=== PATIENT | male | born 1945 | race African-American/Black ===

== ENCOUNTER 2017-07-17 22:29 | Inpatient (IN) | payer MEDICARE, OTHER ==
[~2017-07-17] VITALS: Ht 175.3 cm; Wt 75.3 kg
[~2017-07-17 22:29] MED LIST: BACL-141 PO; DILT60TA3 PO; LABE100T PO; LISI-652 PO; SIMV10TA2 PO; TAMS-11 PO
[2017-07-17] MEDS ORDERED: SODIUM CHLORIDE 0.9% 1,000 ML IV ONE (23:27)
[2017-07-17] MEDS ORDERED: ONDANSETRON HCL 4MG/2ML VIAL IV ONE (23:30)
[2017-07-18 00:05] LABS: BASOPHILS % 0.3 % (0.0-2.0); EOSINOPHILS % 0.4 % (0.0-5.0); HEMATOCRIT. 29.7 % (42.0-52.0); HEMOGLOBIN. 9.8 g/dL (14.0-18.0); LYMPHOCYTES % 10.1 % (20.0-50.0); MEAN CORPUSCULAR HEMOGLOBIN 25.8 pg (28.0-32.0); MEAN CORPUSCULAR VOLUME 78.2 fL (80.0-94.0); MEAN PLATELET VOLUME 7.6 fl (7.4-10.4); MONOCYTES % 10.2 % (2.0-8.0); PLATELET 279 x1000/uL (130-400); RED CELL DISTRIBUTION WIDTH 19.3 % (11.6-14.6)
[2017-07-18 00:09] LABS: CHLORIDE 100 mEq/L (98-107)
[2017-07-18 00:11] LABS: INR 1.1; PROTHROMBIN TIME 11.6 sec (9.4-11.6)
[2017-07-18 00:17] LABS: CARBON DIOXIDE 31 mEq/L (21-32)
[2017-07-18 01:32] LABS: CLARITY URINE CLEAR (CLEAR); COLOR URINE YELLOW (YELLOW); GLUCOSE URINE NEGATIVE (NEGATIVE); KETONES URINE NEGATIVE (NEGATIVE); LEUKOCYTE ESTERASE URINE NEGATIVE (NEGATIVE); NITRITE URINE NEGATIVE (NEGATIVE); OCCULT BLOOD URINE TRACE (NEGATIVE); PH URINE 5.5 (4.5-8.0); PROTEIN URINE 2+ (NEGATIVE); SPECIFIC GRAVITY URINE 1.016 (1.005-1.030); UROBILINOGEN URINE 0.2 E.U./dL (0.2-1.0)
[2017-07-18] MEDS ORDERED: SODIUM CHLORIDE 0.9% 1,000 ML IV SCH (02:25)
[2017-07-18] MEDS ORDERED: ONDANSETRON HCL 4MG/2ML VIAL IV PRN (08:30)
[2017-07-18] MEDS ORDERED: LORAZEPAM 2MG/ML CPJ IV PRN (08:30)
[2017-07-18] MEDS ORDERED: MORPHINE SULFATE 2 MG/ML CPJ (NOT FOR IM USE) IV PRN (08:30)
[2017-07-18] MEDS ORDERED: HYDROCODONE/ACETAMINOPHEN 5/325MG TABLET PO PRN (08:30)
[2017-07-18] MEDS: POTASSIUM CHLORIDE 20MEQ/PACKET GT SCH ×2 (08:53→17:21)
[2017-07-18 09:43] VITALS: BP 138/76
[2017-07-18 09:47] VITALS: BP 138/76
[2017-07-18] MEDS ORDERED: LACTULOSE 20G/30ML UDC PO PRN (10:15)
[2017-07-18 11:32] LABS: *AMPHETAMINES SCREEN URINE NEGATIVE (NEGATIVE); *BARBITURATES SCREEN URINE NEGATIVE (NEGATIVE); *BENZODIAZEPINES SCREEN URINE NEGATIVE (NEGATIVE); *COCAINE SCREEN URINE NEGATIVE (NEGATIVE); CANNABINOID URINE SCREEN NEGATIVE (NEGATIVE); METHADONE URINE SCREEN NEGATIVE (NEGATIVE); OPIATES URINE SCREEN NEGATIVE (NEGATIVE); PHENCYCLIDINE URINE SCREEN NEGATIVE (NEGATIVE)
[2017-07-18] MEDS: DEXT 5%/0.45% NACL 1000ML 1,000 ML IV SCH (11:51)
[2017-07-18] MEDS: ENOXAPARIN 40MG/0.4ML SYR SUBCUT SCH (11:53)
[2017-07-18] MEDS: THIAMINE HCL 100MG TABLET PO SCH (11:53)
[2017-07-18 12:30] VITALS: BP 130/72
[2017-07-18] MEDS ORDERED: IOHEXOL-300 100 ML BOTTLE ONE (13:50)
[2017-07-18] MEDS ORDERED: SODIUM CHLORIDE 0.9% 10ML VIAL ONE (13:50)
[2017-07-18] MEDS ORDERED: DIATR MEGLU/DIATRIZOATE SOLN 120ML ONE (13:50)
[2017-07-18 16:00] VITALS: BP 133/75
[2017-07-18 20:00] VITALS: BP 108/58
[2017-07-19] VITALS: BP 107/53
[2017-07-19 04:00] VITALS: BP 125/66
[2017-07-19] MEDS: DEXT 5%/0.45% NACL 1000ML 1,000 ML IV SCH (04:29)
[2017-07-19 06:44] LABS: CARBON DIOXIDE 30 mEq/L (21-32); CHLORIDE 109 mEq/L (98-107)
[2017-07-19 06:49] LABS: BASOPHILS % 0.7 % (0.0-2.0); EOSINOPHILS % 3.6 % (0.0-5.0); HEMATOCRIT. 26.9 % (42.0-52.0); HEMOGLOBIN. 8.6 g/dL (14.0-18.0); LYMPHOCYTES % 11.9 % (20.0-50.0); MEAN CORPUSCULAR HEMOGLOBIN 25.7 pg (28.0-32.0); MEAN PLATELET VOLUME 8.3 fl (7.4-10.4); NEUTROPHILS % 72.8 % (40.0-76.0); PLATELET 245 x1000/uL (130-400); RED BLOOD CELL COUNT 3.37 mill/uL (4.7-6.1); RED CELL DISTRIBUTION WIDTH 19.4 % (11.6-14.6)
[2017-07-19 08:00] VITALS: BP 139/71
[2017-07-19] MEDS: POTASSIUM CHLORIDE 20MEQ/PACKET GT SCH ×2 (10:05→16:38)
[2017-07-19] MEDS: THIAMINE HCL 100MG TABLET PO SCH (10:05)
[2017-07-19] MEDS: ENOXAPARIN 40MG/0.4ML SYR SUBCUT SCH (10:06)
[2017-07-19 12:00] VITALS: BP 153/71
[2017-07-19 16:00] VITALS: BP 145/82
[2017-07-19] MEDS ORDERED: IPRATROPIUM/ALBUTEROL 0.5-3(2.5)MG/3ML NEB HHN PRN (16:30)
[2017-07-19] MEDS ORDERED: MORPHINE SULFATE 4 MG/ML CPJ (NOT FOR IM USE) IV PRN (16:30)
[2017-07-19] MEDS ORDERED: CEFTRIAXONE 2 G PREMIX 50 ML IV SCH (18:00)
[2017-07-19] MEDS: CEFTRIAXONE 2 G in DEXTROSE 5% WATER 50 ML IV SCH (18:14)
[2017-07-19 18:23] LABS: CARCINO EMBRYONIC ANTIGEN 1.6 ng/ml
[2017-07-19 18:25] LABS: PROSTRATE SPECIFIC AG TOTAL 1.01 ng/mL (0.0-4.0)
[2017-07-19 19:31] VITALS: BP 145/82
[2017-07-19] MEDS: IPRATROPIUM/ALBUTEROL 0.5-3(2.5)MG/3ML NEB HHN SCH (20:34)
[2017-07-20 00:33] VITALS: BP 155/78
[2017-07-20] MEDS: IPRATROPIUM/ALBUTEROL 0.5-3(2.5)MG/3ML NEB HHN SCH ×4 (01:01→20:12)
[2017-07-20] MEDS: DEXT 5%/0.45% NACL 1000ML 1,000 ML IV SCH ×2 (02:34→20:37)
[2017-07-20 05:24] VITALS: BP 148/81
[2017-07-20 07:59] VITALS: BP 182/68
[2017-07-20] MEDS: ENOXAPARIN 40MG/0.4ML SYR SUBCUT SCH (09:33)
[2017-07-20] MEDS: POTASSIUM CHLORIDE 20MEQ/PACKET GT SCH ×2 (09:34→17:19)
[2017-07-20] MEDS: THIAMINE HCL 100MG TABLET PO SCH (09:34)
[2017-07-20 12:11] VITALS: BP 182/68
[2017-07-20 16:00] VITALS: BP 167/68
[2017-07-20] MEDS: CEFTRIAXONE 2 G in DEXTROSE 5% WATER 50 ML IV SCH (17:19)
[2017-07-20] MEDS: CLONIDINE 0.1MG TABLET PO PRN (17:20)
[2017-07-20 20:00] VITALS: BP 149/76
[2017-07-21] VITALS: BP 132/69
[2017-07-21] MEDS: IPRATROPIUM/ALBUTEROL 0.5-3(2.5)MG/3ML NEB HHN SCH ×4 (02:00→20:36)
[2017-07-21 04:00] VITALS: BP 139/69
[2017-07-21 08:00] VITALS: BP 186/69
[2017-07-21] MEDS: ENOXAPARIN 40MG/0.4ML SYR SUBCUT SCH (09:17)
[2017-07-21] MEDS: CLONIDINE 0.1MG TABLET PO PRN (09:17)
[2017-07-21] MEDS: POTASSIUM CHLORIDE 20MEQ/PACKET GT SCH ×2 (09:17→17:08)
[2017-07-21] MEDS: THIAMINE HCL 100MG TABLET PO SCH (09:17)
[2017-07-21 12:00] VITALS: BP 161/75
[2017-07-21 16:00] VITALS: BP 156/64
[2017-07-21] MEDS: DEXT 5%/0.45% NACL 1000ML 1,000 ML IV SCH (16:53)
[2017-07-21] MEDS: CEFTRIAXONE 2 G in DEXTROSE 5% WATER 50 ML IV SCH (17:08)
[2017-07-21 20:00] VITALS: BP 154/75
[2017-07-22] VITALS: BP 161/74
[2017-07-22] MEDS: IPRATROPIUM/ALBUTEROL 0.5-3(2.5)MG/3ML NEB HHN SCH ×3 (01:05→21:40)
[2017-07-22 04:00] VITALS: BP 153/79
[2017-07-22 08:08] VITALS: BP 173/86
[2017-07-22] MEDS: CLONIDINE 0.1MG TABLET PO PRN (09:33)
[2017-07-22] MEDS: THIAMINE HCL 100MG TABLET PO SCH (09:33)
[2017-07-22] MEDS: POTASSIUM CHLORIDE 20MEQ/PACKET GT SCH ×2 (09:33→17:03)
[2017-07-22] MEDS: ENOXAPARIN 40MG/0.4ML SYR SUBCUT SCH (09:34)
[2017-07-22 11:50] LABS: BASOPHILS % 0.5 % (0.0-2.0); EOSINOPHILS % 3.3 % (0.0-5.0); HEMATOCRIT. 30.5 % (42.0-52.0); HEMOGLOBIN. 9.8 g/dL (14.0-18.0); LYMPHOCYTES % 11.1 % (20.0-50.0); MEAN CORPUSCULAR HEMOGLOBIN 25.7 pg (28.0-32.0); MEAN CORPUSCULAR VOLUME 80.4 fL (80.0-94.0); MEAN PLATELET VOLUME 8.2 fl (7.4-10.4); MONOCYTES % 10.2 % (2.0-8.0); NEUTROPHILS % 74.9 % (40.0-76.0); PLATELET 250 x1000/uL (130-400); RED CELL DISTRIBUTION WIDTH 19.8 % (11.6-14.6)
[2017-07-22 11:57] VITALS: BP 147/79
[2017-07-22 12:02] LABS: CARBON DIOXIDE 29 mEq/L (21-32); CHLORIDE 104 mEq/L (98-107)
[2017-07-22] MEDS: LISINOPRIL 10MG TABLET PO SCH ×2 (13:16→21:00)
[2017-07-22] MEDS: DEXT 5%/0.45% NACL 1000ML 1,000 ML IV SCH (16:08)
[2017-07-22 16:17] VITALS: BP 143/78
[2017-07-22] MEDS: CEFTRIAXONE 2 G in DEXTROSE 5% WATER 50 ML IV SCH (17:03)
[2017-07-22 20:00] VITALS: BP 124/71
[2017-07-22] MEDS: LABETALOL HCL 100MG TABLET PO SCH (21:00)
[2017-07-22] MEDS: AMLODIPINE 2.5MG TABLET PO SCH (21:00)
[2017-07-22] MEDS: PANTOPRAZOLE SODIUM 40 MG/VIAL IV SCH (22:04)
[2017-07-23] MEDS: IPRATROPIUM/ALBUTEROL 0.5-3(2.5)MG/3ML NEB HHN SCH ×3 (03:45→14:54)
[2017-07-23 04:00] VITALS: BP 159/84
[2017-07-23 04:17] LABS: DRVVT LA 39.5 sec (0.0-47.0); LUPUS ANTICOAG INTERPRETATION Comment: (.); PTT-LA 45.2 sec (0.0-51.9)
[2017-07-23 06:28] LABS: INR 1.1; PARTIAL THROMBOPLASTIN TIME 33.6 sec (23.4-31.0); PROTHROMBIN TIME 11.7 sec (9.4-11.6)
[2017-07-23 07:48] LABS: BG BASE EXCESS 1.6 mmol/L (-2.0-2.0); BG CARBOXYHEMOGLOBIN 0.7 % (0.5-1.5); BG DEOXYHEMOGLOBIN 4.6 % (0.0-5.0); BG FRACTION INSPIRED OXYGEN 21; BG HCO3 ACT 25.4 mmol/L (22.0-26.0); BG METHEMOGLOBIN 0.3 % (0.0-1.5); BG OXYGEN SATURATION 95.4 % (92.0-98.5); BG OXYHEMOGLOBIN 94.4 % (94.0-97.0); BG PCO2 36.5 mmHg (35.0-45.0); BG SAMPLE SITE RIGHT BRACHIAL; BG TOTAL HEMOGLOBIN 9.9 g/dL (12.0-18.0); BG VENT MODE ROOM AIR
[2017-07-23 08:10] VITALS: BP 152/72
[2017-07-23] MEDS: POTASSIUM CHLORIDE 20MEQ/PACKET GT SCH ×2 (08:21→17:24)
[2017-07-23] MEDS: THIAMINE HCL 100MG TABLET PO SCH (08:21)
[2017-07-23] MEDS: DEXT 5%/0.45% NACL 1000ML 1,000 ML IV SCH (08:23)
[2017-07-23] MEDS: PANTOPRAZOLE SODIUM 40 MG/VIAL IV SCH ×2 (08:38→21:50)
[2017-07-23] MEDS: AMLODIPINE 2.5MG TABLET PO SCH ×2 (08:50→21:50)
[2017-07-23] MEDS: LABETALOL HCL 100MG TABLET PO SCH (09:00)
[2017-07-23] MEDS: LISINOPRIL 10MG TABLET PO SCH ×2 (09:00→21:50)
[2017-07-23 09:07] LABS: ALPHA FETOPROTEIN TUMOR MARKER 3.5 ng/mL (0.0-8.3)
[2017-07-23] MEDS ORDERED: HYDRALAZINE 20MG/ML VIAL IV PRN (11:45)
[2017-07-23 12:00] LABS: ANTI-MYELOPEROXIDASE AB < 9.0 U/mL (0.0-9.0); ANTI-PROTEINASE 3 ABS < 3.5 U/mL (0.0-3.5); ATYPICAL P-ANCA <1:20 titer (Neg:<1:20); CYTOPLASMIC C-ANCA <1:20 titer (Neg:<1:20); PERINUCLEAR P-ANCA <1:20 titer (Neg:<1:20)
[2017-07-23 12:19] VITALS: BP 163/88
[2017-07-23] MEDS ORDERED: SODIUM BICARBONATE 4% (2.4MEQ) 5ML VIAL IV ONE (14:09)
[2017-07-23] MEDS ORDERED: LIDOCAINE HCL 1% 20ML VIAL (Pyxis) INJ ONE (14:09)
[2017-07-23 15:57] VITALS: BP 141/93
[2017-07-23] MEDS: CEFTRIAXONE 2 G in DEXTROSE 5% WATER 50 ML IV SCH (17:24)
[2017-07-23 19:12] LABS: ANTI-NUCLEAR ANTIBODIES DIRECT Negative (Negative)
[2017-07-23 20:00] VITALS: BP 143/76
[2017-07-23] MEDS ORDERED: LABETALOL HCL 200MG TABLET PO SCH (21:37)
[2017-07-23] MEDS: LABETALOL HCL 200MG TABLET PO SCH (21:50)
[2017-07-24] VITALS: BP 133/61
[2017-07-24 04:00] VITALS: BP 135/71
[2017-07-24] MEDS: DEXT 5%/0.45% NACL 1000ML 1,000 ML IV SCH (04:23)
[2017-07-24 07:04] LABS: INR 1.1; PARTIAL THROMBOPLASTIN TIME 34.4 sec (23.4-31.0)
[2017-07-24] MEDS: IPRATROPIUM/ALBUTEROL 0.5-3(2.5)MG/3ML NEB HHN SCH ×3 (07:37→22:02)
[2017-07-24 08:00] VITALS: BP 166/67
[2017-07-24] MEDS: AMLODIPINE 2.5MG TABLET PO SCH ×2 (09:00→21:03)
[2017-07-24] MEDS: LISINOPRIL 10MG TABLET PO SCH ×2 (09:00→21:03)
[2017-07-24] MEDS: POTASSIUM CHLORIDE 20MEQ/PACKET GT SCH ×2 (09:00→18:25)
[2017-07-24] MEDS: THIAMINE HCL 100MG TABLET PO SCH (09:00)
[2017-07-24] MEDS: LABETALOL HCL 200MG TABLET PO SCH ×2 (09:00→21:03)
[2017-07-24 12:05] VITALS: BP 159/69
[2017-07-24] MEDS: PANTOPRAZOLE SODIUM 40 MG/VIAL IV SCH ×2 (12:44→21:03)
[2017-07-24] MEDS ORDERED: SODIUM BICARBONATE 4% (2.4MEQ) 5ML VIAL IV ONE (13:33)
[2017-07-24 16:00] VITALS: BP 152/67
[2017-07-24] MEDS ORDERED: MEPERIDINE HCL/PF 25MG/ML CPJ IV PRN (16:30)
[2017-07-24] MEDS ORDERED: ONDANSETRON HCL 4MG/2ML VIAL IV PRN (16:30)
[2017-07-24] MEDS ORDERED: LABETALOL HCL 20MG/4ML CARPUJECT IV PRN (16:30)
[2017-07-24] MEDS ORDERED: HYDROMORPHONE HCL/PF 2MG/ML CPJ IV PRN (16:30)
[2017-07-24] MEDS: CEFTRIAXONE 2 G in DEXTROSE 5% WATER 50 ML IV SCH (18:24)
[2017-07-24 19:32] VITALS: BP 137/74
[2017-07-25 00:09] VITALS: BP 135/60
[2017-07-25] MEDS: DEXT 5%/0.45% NACL 1000ML 1,000 ML IV SCH ×2 (00:22→21:45)
[2017-07-25] MEDS: IPRATROPIUM/ALBUTEROL 0.5-3(2.5)MG/3ML NEB HHN SCH ×4 (03:55→20:29)
[2017-07-25 04:28] VITALS: BP 117/62
[2017-07-25 08:05] VITALS: BP 144/76
[2017-07-25] MEDS: THIAMINE HCL 100MG TABLET PO SCH (10:10)
[2017-07-25] MEDS: POTASSIUM CHLORIDE 20MEQ/PACKET GT SCH ×2 (10:10→18:47)
[2017-07-25] MEDS: PANTOPRAZOLE SODIUM 40 MG/VIAL IV SCH ×2 (10:10→21:52)
[2017-07-25] MEDS: LABETALOL HCL 200MG TABLET PO SCH ×2 (10:10→21:47)
[2017-07-25] MEDS: AMLODIPINE 2.5MG TABLET PO SCH ×2 (10:11→21:46)
[2017-07-25] MEDS: LISINOPRIL 10MG TABLET PO SCH ×2 (10:11→21:48)
[2017-07-25 12:31] VITALS: BP 145/77
[2017-07-25 16:22] VITALS: BP 146/70
[2017-07-25] MEDS: CEFTRIAXONE 2 G in DEXTROSE 5% WATER 50 ML IV SCH (18:48)
[2017-07-25 20:00] VITALS: BP 131/66
[2017-07-26] VITALS (8 sets, daily range): BP systolic 135–168; BP diastolic 74–88
[2017-07-26] MEDS: IPRATROPIUM/ALBUTEROL 0.5-3(2.5)MG/3ML NEB HHN SCH ×4 (01:45→20:18)
[2017-07-26 06:58] LABS: CARBON DIOXIDE 27 mEq/L (21-32); CHLORIDE 106 mEq/L (98-107)
[2017-07-26 07:16] LABS: INR 1.1; PARTIAL THROMBOPLASTIN TIME 32.7 sec (23.4-31.0); PROTHROMBIN TIME 11.8 sec (9.4-11.6)
[2017-07-26 07:54] LABS: BASOPHILS % 0.7 % (0.0-2.0); EOSINOPHILS % 5.1 % (0.0-5.0); HEMATOCRIT. 29.1 % (42.0-52.0); HEMOGLOBIN. 9.3 g/dL (14.0-18.0); LYMPHOCYTES % 15.2 % (20.0-50.0); MEAN CORPUSCULAR HEMOGLOBIN 25.5 pg (28.0-32.0); MEAN CORPUSCULAR VOLUME 80.1 fL (80.0-94.0); MEAN PLATELET VOLUME 8.9 fl (7.4-10.4); MONOCYTES % 11.6 % (2.0-8.0); NEUTROPHILS % 67.4 % (40.0-76.0); PLATELET 214 x1000/uL (130-400); RED BLOOD CELL COUNT 3.63 mill/uL (4.7-6.1); RED CELL DISTRIBUTION WIDTH 19.5 % (11.6-14.6)
[2017-07-26] MEDS: LISINOPRIL 10MG TABLET PO SCH ×2 (09:00→20:15)
[2017-07-26] MEDS: AMLODIPINE 2.5MG TABLET PO SCH ×2 (09:00→20:15)
[2017-07-26] MEDS: POTASSIUM CHLORIDE 20MEQ/PACKET GT SCH ×2 (09:00→17:49)
[2017-07-26] MEDS: LABETALOL HCL 200MG TABLET PO SCH ×2 (09:00→20:14)
[2017-07-26] MEDS: THIAMINE HCL 100MG TABLET PO SCH (09:00)
[2017-07-26] MEDS: PANTOPRAZOLE SODIUM 40 MG/VIAL IV SCH (10:11)
[2017-07-26] MEDS: DEXT 5%/0.45% NACL 1000ML 1,000 ML IV SCH (16:23)
[2017-07-26] MEDS: CEFTRIAXONE 2 G in DEXTROSE 5% WATER 50 ML IV SCH (17:49)
[2017-07-26] MEDS ORDERED: FAMOTIDINE 20MG/2ML VIAL IV SCH (21:00)
== END 2017-07-26 21:48 | DRG 177 ==
LOC: ER 22:34 → 6WST 07-18 02:26 → EDBEDREQ 07-18 02:30 → EDBEDREQTM 07-18 02:30 → ENRESERV 07-18 07:04
PROVIDERS: ADMIT Hospitalist; ATTEND Hospitalist
PROC: 0W993ZZ Drainage of Right Pleural Cavity, Percutaneous Approach (ICD-10-PCS; principal; 2017-07-23)
PROC: 0W9B3ZZ Drainage of Left Pleural Cavity, Percutaneous Approach (ICD-10-PCS; 2017-07-24)
DX: J86.9 Pyothorax without fistula (principal); E43 Unspecified severe protein-calorie malnutrition; N13.30 Unspecified hydronephrosis; I31.3 Pericardial effusion (noninflammatory); J90 Pleural effusion, not elsewhere classified; K94.23 Gastrostomy malfunction; E87.5 Hyperkalemia; E86.0 Dehydration; J98.11 Atelectasis; E11.9 Type 2 diabetes mellitus without complications; N32.89 Other specified disorders of bladder; D64.9 Anemia, unspecified; I10 Essential (primary) hypertension; R47.02 Dysphasia; E78.5 Hyperlipidemia, unspecified; N40.0 Benign prostatic hyperplasia without lower urinary tract symptoms; R62.7 Adult failure to thrive; E87.6 Hypokalemia; J44.9 Chronic obstructive pulmonary disease, unspecified; Y83.3 Surgical operation with formation of external stoma as the cause of abnormal reaction of the patient, or of later complication, without mention of misadventure at the time of the procedure; Z53.8 Procedure and treatment not carried out for other reasons; Y92.89 Other specified places as the place of occurrence of the external cause; I69.320 Aphasia following cerebral infarction; Z68.24 Body mass index [BMI] 24.0-24.9, adult
CPT/HCPCS: 32555; 36415; 36600; 51702; 70450; 71010; 71250; 74177; 80048; 80053; 80305; 81001; 82040; 82105; 82375; 82378; 82805; 82945; 83520; 83605; 83615; 83690; 83735; 84153; 84155; 85025; 85610; 85613; 85730; 85732; 86038; 86256; 86431; 86850; 86900; 87040; 87070; 87086; 87205; 88108; 88312; 89050; 93005; 93306; 94640; 94664; 96361; 96372; 96374; 99291; A4216; C9113; J0696; J1650; J2405; J3490; J7030; J7060; J7620; Q9963; Q9967; A4315